=== PATIENT | male | born 1985 | race Two or more races ===

== ENCOUNTER 2024-10-31 18:32 | Emergency (ER) | payer OTHER ==
[~2024-10-31] VITALS: Ht 172.7 cm; Wt 95.3 kg
[2024-10-31] MEDS ORDERED: BUTALB/ACETAMINOPHEN/CAFFEINE 1 TAB TABLET PO ONE (19:15)
[2024-10-31 19:39] LABS: HEMATOCRIT 40.6 % (39.0-48.0); HEMOGLOBIN 13.9 g/dL (13-16.00); MEAN CELL VOLUME 85.7 fL (80.0-100.00); MEAN CORPUSCULAR HEMOGLOBIN 29.3 pg (27.00-32.0); MEAN CORPUSCULAR HGB CONC 34.2 g/dl (32.0-36.0); PLATELET COUNT 336 K/uL (150-450); RED BLOOD COUNT 4.74 M/uL (4.00-6.00); RED CELL DISTRIBUTION WIDTH 13.8 % (11.5-14.5)
[2024-10-31] MEDS ORDERED: BENZONATATE200 M1 PO (20:42)
[2024-10-31] MEDS ORDERED: PEPCID AC20 MG PO (20:42)
[2024-10-31] MEDS ORDERED: BUTALB-ACETAMI1 EAC2 PO (20:42)
[2024-10-31] MEDS ORDERED: CIPRO500 MG PO (20:42)
== END 2024-10-31 20:52 | disposition home or self-care (01) ==
LOC: ER 18:34
PROVIDERS: General Practice
DX: R51.9 Headache, unspecified (principal); R50.9 Fever, unspecified; Z20.822 Contact with and (suspected) exposure to COVID-19; Z88.1 Allergy status to other antibiotic agents

== ENCOUNTER 2025-06-15 12:07 | Emergency (ER) | payer OTHER ==
[~2025-06-15] VITALS: Ht 172.7 cm; Wt 95.3 kg
[~2025-06-15 12:07] MED LIST: BENZONATATE200 M1 PO; BUTALB-ACETAMI1 EAC2 PO; CIPRO500 MG PO; PEPCID AC20 MG PO
[2025-06-15] MEDS ORDERED: DEXAMETHASONE SODIUM PHOSPHATE 4 MG/ML VIAL IM ONE (14:30)
[2025-06-15] MEDS ORDERED: ORPHENADRINE CITRATE 30 MG/ML AMPUL IM ONE (14:30)
[2025-06-15] MEDS ORDERED: NORFLEX100MG PO (15:39)
== END 2025-06-15 15:36 ==
LOC: ER 12:07
DX: M62.830 Muscle spasm of back (principal); Z88.6 Allergy status to analgesic agent